=== PATIENT | female | born 1965 | race Two or more races ===

== ENCOUNTER 2022-04-13 22:01 | Observation (INO) | payer OTHER ==
[2022-04-13 23:38] LABS: BASO % 0.4 % (0-2.0); EOS % 1.7 % (0-4.5); HEMATOCRIT 38.7 % (32.4-45.2); HEMOGLOBIN 13.1 GM/dL (10.7-15.3); LYMPH % 15.1 % (8-40); MCH 30.4 pg (25.7-33.7); MCHC 33.8 g/dl (32.0-36.0); MEAN CELL VOLUME 89.8 fl (80-96); MEAN PLT VOLUME 8.6 fl (7.5-11.1); MONO % 5.8 % (3.8-10.2); PLATELET COUNT 254 10^3/uL (134-434); RDW 13.8 % (11.6-15.6); WHITE BLOOD COUNT 9.4 K/mm3 (4.0-10.0)
[2022-04-13 23:41] LABS: EPI CELLS >36 /uL (0-25.1); HYALINE CASTS 7 /uL (0-3.1); PH,URINE 5.5 (5.0-8.0); URINE APPEARANCE CLOUDY; URINE BACTERIA 1741 /uL (0-1359); URINE BILIRUBIN NEGATIVE (NEGATIVE); URINE COLOR DK YELLOW; URINE GLUCOSE (UA) NEGATIVE (NEGATIVE); URINE KETONE TRACE (NEGATIVE); URINE LEUK ESTERASE 1+ (NEGATIVE); URINE NITRITE NEGATIVE (NEGATIVE); URINE PROTEIN 1+ (NEGATIVE); URINE RBC 20 /uL (0-23.9); URINE WBC 172 /uL (0-25.8)
[2022-04-13] MEDS ORDERED: CEFTRIAXONE 1 GM in DEXTROSE 5%-WATER - 100 ML IVPB ONE (23:41)
[2022-04-13 23:58] LABS: CALCIUM 8.9 mg/dL (8.5-10.1)
[2022-04-13 23:59] LABS: ALBUMIN 3.8 g/dl (3.4-5.0); BLOOD UREA NITROGEN 14.3 mg/dL (7-18)
[2022-04-14 00:02] LABS: BILIRUBIN,TOTAL 0.5 mg/dL (0.2-1); CREATININE 0.6 mg/dL (0.55-1.3); TOT PROT 6.8 g/dl (6.4-8.2)
[2022-04-14] MEDS ORDERED: CEFTRIAXONE 1 GM/50 ML BAG ONE (00:22)
[2022-04-14] MEDS ORDERED: ACETAMINOPHEN 1000 MG/100 ML BAG IVPB ONE (01:28)
[2022-04-14] MEDS ORDERED: ACETAMINOPHEN INJECTION 100 ML IVPB ONE (01:53)
[2022-04-14 04:12] LABS: URINE APPEARANCE CLEAR; URINE BILIRUBIN NEGATIVE (NEGATIVE); URINE COLOR YELLOW; URINE GLUCOSE (UA) NEGATIVE (NEGATIVE); URINE KETONE TRACE (NEGATIVE); URINE LEUK ESTERASE NEGATIVE (NEGATIVE); URINE NITRITE NEGATIVE (NEGATIVE); URINE PROTEIN TRACE (NEGATIVE)
[2022-04-14 05:13] VITALS: BMI 34.1
[2022-04-14 06:35] LABS: BASO % 0.3 % (0-2.0); EOS % 2.5 % (0-4.5); HEMATOCRIT 35.9 % (32.4-45.2); LYMPH % 30.2 % (8-40); MCH 29.7 pg (25.7-33.7); MCHC 33.5 g/dl (32.0-36.0); MEAN CELL VOLUME 88.7 fl (80-96); MEAN PLT VOLUME 8.7 fl (7.5-11.1); MONO % 7.2 % (3.8-10.2); NEUT % 59.8 % (42.8-82.8); PLATELET COUNT 225 10^3/uL (134-434); RBC 4.05 M/mm3 (3.60-5.2); RDW 13.9 % (11.6-15.6); WHITE BLOOD COUNT 6.4 K/mm3 (4.0-10.0)
[2022-04-14] MEDS ORDERED: ALBUTEROL SO4 0.083% IH SOL 2.5 MG/3 ML VIAL.NEB. NEB PRN (06:55)
[2022-04-14 07:00] LABS: ALBUMIN 3.3 g/dl (3.4-5.0); CALCIUM 8.4 mg/dL (8.5-10.1)
[2022-04-14] MEDS ORDERED: INSULIN SLIDING SCALE (NOVOLOG) 1 VIAL SQ SCH (07:00)
[2022-04-14 07:01] LABS: BLOOD UREA NITROGEN 16.7 mg/dL (7-18); MAGNESIUM 1.9 mg/dL (1.8-2.4)
[2022-04-14 07:03] LABS: CREATININE 0.5 mg/dL (0.55-1.3); PHOSPHOROUS 3.8 mg/dL (2.5-4.9)
[2022-04-14 07:04] LABS: BILIRUBIN,TOTAL 0.6 mg/dL (0.2-1); TOT PROT 6.1 g/dl (6.4-8.2)
[2022-04-14 07:07] LABS: CHOLESTEROL 142 mg/dL (50-200); TRIGLYCERIDES 98 mg/dL (0-150)
[2022-04-14 07:08] LABS: LDL CHOLESTEROL (ONLY SJRH) 64 mg/dL (5-100)
[2022-04-14 07:10] LABS: HDL CHOLESTEROL 61 mg/dL (40-60)
[2022-04-14] MEDS ORDERED: LEVOTHYROXINE NA 25 MCG TABLET (FP) PO SCH (07:15)
[2022-04-14 07:28] VITALS: TEMP 97.9
[2022-04-14] MEDS ORDERED: ARIPiprazole 5 MG TABLET PO ONE (08:00)
[2022-04-14] MEDS ORDERED: LEVOTHYROXINE NA 25 MCG TABLET (FP) ONE (08:17)
[2022-04-14] MEDS ORDERED: ARIPiprazole 5 MG TABLET ONE (08:18)
[2022-04-14] MEDS ORDERED: amLODIPine BESYLATE 5 MG TABLET (FP) PO SCH (10:00)
[2022-04-14] MEDS ORDERED: PARoxetine HCL 20 MG TABLET PO SCH (10:00)
[2022-04-14] MEDS ORDERED: busPIRone HCL 10 MG TABLET (FP) PO SCH (10:00)
[2022-04-14] MEDS ORDERED: ENOXAPARIN NA (PORCINE) 40 MG/0.4 ML DISP.SYRIN SQ SCH (10:00)
[2022-04-14] MEDS ORDERED: HYDROCHLOROTHIAZIDE 25 MG TABLET (FP) PO SCH (10:00)
[2022-04-14] MEDS ORDERED: PREGABALIN 100 MG CAPSULE PO SCH (10:00)
[2022-04-14] MEDS ORDERED: PREGABALIN 100 MG CAPSULE ONE (10:29)
[2022-04-14] MEDS ORDERED: HYDROCHLOROTHIAZIDE 25 MG TABLET (FP) ONE (10:29)
[2022-04-14] MEDS ORDERED: amLODIPine BESYLATE 5 MG TABLET (FP) ONE (10:29)
[2022-04-14] MEDS ORDERED: busPIRone HCL 5 MG TABLET ONE (10:29)
[2022-04-14] MEDS ORDERED: ENOXAPARIN NA (PORCINE) 30 MG/0.3 ML DISP.SYRIN SQ ONE (10:30)
[2022-04-14 11:20] VITALS: RESP 18
[2022-04-14 14:32] VITALS: BP 114/71; PULSE 75
[2022-04-14] MEDS ORDERED: ATORVASTATIN CA 20 MG TABLET (FP) PO SCH (22:00)
== END 2022-04-14 15:28 | disposition home or self-care (01) ==
LOC: JER 22:01 → JERBED 23:21
PROVIDERS: ADMIT Internal Medicine; ATTEND Internal Medicine
PROC: 3E033NZ Introduction of Analgesics, Hypnotics, Sedatives into Peripheral Vein, Percutaneous Approach (ICD-10-PCS; principal; 2022-04-13)
PROC: 3E03329 Introduction of Other Anti-infective into Peripheral Vein, Percutaneous Approach (ICD-10-PCS; 2022-04-13)
PROC: 3E023GC Introduction of Other Therapeutic Substance into Muscle, Percutaneous Approach (ICD-10-PCS; 2022-04-13)
DX: N39.0 Urinary tract infection, site not specified (principal); S80.219A Abrasion, unspecified knee, initial encounter; S00.83XA Contusion of other part of head, initial encounter; F41.8 Other specified anxiety disorders; J45.909 Unspecified asthma, uncomplicated; I10 Essential (primary) hypertension; E03.9 Hypothyroidism, unspecified; R42 Dizziness and giddiness; W18.39XA Other fall on same level, initial encounter; Y93.89 Activity, other specified; Y92.410 Unspecified street and highway as the place of occurrence of the external cause
CPT/HCPCS: 36415; 70450-TC; 70486-TC; 70551-TC; 71045-TC-FY; 72125-TC; 73562-TC-RT-FY; 73590-TC-RT-FY; 80053; 80061; 81003; 82962; 83036; 83735; 84100; 84439; 84443; 84484; 85025; 86850; 86900; 86901; 87086; 93005; 93010; 93880-TC; 96365; 96372; 96375; 99285-25; C9803-CS; G0378; U0003; U0005